=== PATIENT | female | born 1995 | race Caucasian/White ===

== ENCOUNTER 2016-10-24 14:55 | Emergency (ER) | payer OTHER ==
[2016-10-24 15:06] VITALS: BP 125/74; PULSE 75; TEMP 98.5; BMI 25.7
[2016-10-24] MEDS ORDERED: DEXAMETHASONE SOD PHOSPHATE 10 MG/1 ML VIAL ONE (15:27)
[2016-10-24] MEDS ORDERED: DEXAMETHASONE SOD PHOSPHATE 10 MG/1 ML VIAL IM ONE (15:27)
--- NOTE | 2016-10-24 15:30 | PDOC ---
History of Present Illness - General Chief Complaint: Rash Stated Complaint: RASH ALL OVER BODY Time Seen by Provider: 10/24/16 15:17 History Source: Patient Exam Limitations: No Limitations - History of Present Illness Initial Comments: 10/24/16 15:26 c/o itching lesions started 1 week ago and is developing more lesions daily. Uncertqain to cause. Thnks may be insect bites ./ Has not taken any medication. [place] [employer] [place] she noticed a few of the lesions last week, but has progressively noticed more eruptions all same type and itchy. Denies fever, denies any other illness recently, is not used any medication for relief 10/24/16 15:35 10/24/16 16:47 Timing/Duration: reports: just prior to arrival Severity: Yes: mild Location: reports: extremities, generalized (scattered ) Respiratory Risk Factors: reports: no cause identified, insect bite Associated Symptoms: reports: denies symptoms Past History - Travel Traveled outside of the country in the last 30 days: No Close contact w/someone who was outside of country & ill: No - Past Medical History Allergies/Adverse Reactions: Allergies Allergy/AdvReac Type Severity Reaction Status Date / Time No Known Allergies Allergy Verified 10/24/16 15:06 Other medical history: NONE - Surgical History Neurologic Surgery: Yes (BENIGN TUMOR) - Psycho/Social/Smoking Cessation Hx Anxiety: No Suicidal Ideation: No Smoking History: Never smoked Hx Alcohol Use: No Drug/Substance Use Hx: No Substance Use Type: None Review of Systems - Review of Systems Able to Perform ROS?: Yes Is the patient limited [place]anian proficient: Yes Constitutional: Yes: Symptoms Reported HEENTM: Yes: See HPI, Nose Congestion. No: Symptoms Reported Respiratory: No: Symptoms reported Integumentary: Yes: Symptoms Reported, See HPI, Pruritus, Rash *Physical Exam - Vital Signs Last Vital Signs Temp Pulse Resp BP Pulse Ox 98.5 F 75 18 125/74 100 10/24/16 15:02 10/24/16 15:02 10/24/16 15:02 10/24/16 15:02 10/24/16 15:02 - Physical Exam General Appearance: Yes: Nourished, Appropriately Dressed, Apparent Distress. No: Mild Distress HEENT: positive: STEPHANIE, Normal ENT Inspection, TMs Normal, Pharynx Normal (no swelling / redness to lips/ tongue/ airway clear). negative: Rhinorrhea, Sinus Tenderness Neck: positive: Supple. negative: Lymphadenopathy (R), Lymphadenopathy (L) Respiratory/Chest: positive: Lungs Clear, Normal Breath Sounds Gastrointestinal/Abdominal: positive: Soft. negative: Tender, Distended, Guarding, Rebound, Tenderness Extremity: positive: Normal Capillary Refill, Normal Inspection, Normal Range of Motion Integumentary: positive: Normal Color, Warm, Other (discrete erythematous lesions with mild swelling at Central sites consistent with the appearance of insect bites. 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 We'll treat with antihistamines and given 1 dose of Decadron *DC/Admit/Observation/Transfer Diagnosis at time of Disposition: Insect bite Qualifiers: Encounter type: initial encounter Qualified Code(s): W57.XXXA - Bitten or stung by nonvenomous insect and other nonvenomous arthropods, initial encounter - Discharge Dispostion Disposition: HOME Condition at time of disposition: Stable Admit: No - Patient Instructions Printed Discharge Instructions: DI for Insect Bites and Stings Additional Instructions: Rest, keep cool and dry- avoid strenuous activity or hot /humid environments Less hot showers, no abrasive soaps May use heavy creams like Eucerin or Cetaphil to keep skin moist May apply Aveeno, calamine lotion, [id number] hydrocortisone creams as needed for symptoms May use Benadryl at night for antihistamine, Zyrtec/ Coty or Claritin for daytime antihistamine use to help with itching May use [id number] hydrocortisone cream on all areas except face Try to identify cause for rash and avoid exposures Followup with PMD in one week if no resolution Make appointment with mechanical maintenance technician for evaluation when possible - Post Discharge Activity Work/School Note: Back to Work
== END 2016-10-24 15:48 | disposition home or self-care (01) ==
LOC: JERFT 14:55
DX: T14.8 Other injury of unspecified body region (principal); W57.XXXA Bitten or stung by nonvenomous insect and other nonvenomous arthropods, initial encounter; Y93.89 Activity, other specified; Y92.831 Amusement park as the place of occurrence of the external cause; Y99.8 Other external cause status
CPT/HCPCS: 99281-25